=== PATIENT | female | born 1965 ===

== ENCOUNTER 2024-06-30 05:37 | Day surgery (SDC) | payer OTHER ==
[2024-06-24 13:06] VITALS: BP 145/74
[~2024-06-30] VITALS: Ht 154.9 cm; Wt 74.4 kg
[~2024-06-30 05:37] MED LIST: ATORVASTATIN CA40 MG; GABAPENTIN300 M2; LANTUS SOL100 UNIT/1; PIOGLITAZONE HC15 MG; SYNJARDY 5-1,01 EACH; ZESTRIL10 M1
[2024-06-30] MEDS ORDERED: MORPHINE SULFATE 4 MG/ML VIAL IV ONE (11:15)
[2024-06-30] MEDS ORDERED: METRONIDAZOLE/SODIUM CHLORIDE 500 MG/100 ML PIGGYBACK IV ONE (14:45)
[2024-06-30] MEDS ORDERED: BUPIVACAINE HCL 30 ML VIAL IJ ONE (14:45)
[2024-06-30] MEDS ORDERED: LIDOCAINE HCL 1%/EPINEPHRINE 20ML VIAL IJ ONE (15:00)
[2024-06-30] MEDS ORDERED: POVIDONE-IODINE 118 ML BOTT TOP ONE (15:00)
[2024-06-30] MEDS ORDERED: TRIAMCINOLONE ACETONIDE 40 MG/ML VIAL IJ ONE (15:00)
== END 2024-06-30 13:05 | disposition home or self-care (01) ==
LOC: CIR.AMB 05:37
PROVIDERS: ATTEND Colon & Rectal Surgery
DX: K62.2 Anal prolapse (principal); K64.2 Third degree hemorrhoids; K64.3 Fourth degree hemorrhoids; L91.0 Hypertrophic scar; E78.5 Hyperlipidemia, unspecified; J45.909 Unspecified asthma, uncomplicated; E11.9 Type 2 diabetes mellitus without complications